=== PATIENT | female | born 1945 | race Caucasian/White ===

== ENCOUNTER 2025-01-15 17:11 | Emergency (ER) | payer MEDICARE, SELFPAY ==
[2025-01-15] VITALS (10 sets, daily range): BP systolic 89–113; BP diastolic 39–76; PULSE 96–99; RESP 14–19; TEMP 36.6–36.7; O2SAT 94–100; BMI 25.9
--- NOTE | 2025-01-15 17:14 | ECG_ITS ---
APPROVED REPORT Exam: Resting ECG HR:98 bpm ECG Measurements Heart Rate 98 AXES NJ 207 P 76 QRSd 100 QRS 79 QT 374 T 82 QTc 430 Conclusion ELECTRONIC VENTRICULAR PACEMAKER MARKED ST ELEVATION, CONSIDER INFERIOR INJURY [MARKED ST ELEVATION W/O Electronically signed by : AVEL HOLLINGSWORTH, 01/15/2025 23:12:33
--- NOTE | 2025-01-15 17:18 | ED_ITS ---
Discharge Plan Disposition Chief Complaint: Altered Mental Status Prescriptions Prescriptions: No Action Unobtainable Referrals Follow up/Referrals: Provider,Referral, MD [Referring] - See instructions Stand Alone Forms Stand Alone Forms: Transfer Record - ED Instructions Patient Instructions: DI for Altered Mental Status Print Language Print Language: Maltese Discharge ED Provider: Nils Govea Adult HPI General Chief complaint: Altered Mental Status Stated complaint: weakness Time Seen by Provider: 01/15/25 17:18 History of Present Illness HPI narrative: Patient presents for evaluation of shortness of breath. Patient states she does not know how long symptoms have been going on for her. Denies any pain. Denies any chest pain palpitations nausea vomiting. History severely limited secondary to patient's limited recollection of HPI, past medical history. Please note that above description of symptoms, in this electronic medical record under categorization of recalled from ER triage doctor by RN are reflective of an initial nursing assessment, however, is not reflective of my full history and physical exam that was personally taken and clarified. Consequentially, this preceding description of symptoms, which may include the patient's categorized chief complaint in the EMR, do not reflect my personal clinical impression, and the ultimate description of history of present illness and patient stated complaints should be deferred to this section of the note. Unless stated otherwise or congruent with this section of the note, additional signs, symptoms, or incongruence should be interpreted as inaccurate with my clinical impression. Related Data Home Medications ?Medication ?Instructions ?Recorded ?Confirmed Unobtainable 01/15/25 01/15/25 Allergies Allergy/AdvReac Type Severity Reaction Status Date / Time Unable to Assess Allergy Verified 01/15/25 18:34 [facility] Disclaimer: The information contained in this section may have been updated after the patient was seen, as this information can be updated by other users. Social History Smoking Status: Unknown if ever smoked alcohol intake: former current occupational status: other Travel in the last 8 weeks: None ROS Obtained: Yes other As per HPI Physical Exam General General appearance: alert Comment: Confused Head Head exam: atraumatic and normocephalic Eye Eye exam: Present normal appearance Neck Neck exam: Present normal inspection Chest Chest inspection: Present normal inspection and symmetric chest wall rise Respiratory Respiratory exam: Present normal lung sounds bilaterally (Decreased breath sounds at bilateral lung bases) Cardiovascular Cardiovascular exam: Present regular rate and normal rhythm Abdominal Exam Abdominal exam: Present soft Neurological Exam Neurological exam: Present alert and oriented X3 Psychiatric Psychiatric exam: Present normal affect and normal mood Skin Skin exam: Present warm and dry Medical Decision Making Medical Records Medical records reviewed: Yes I reviewed the patient's medical records. Screening: Per USPSTF and CDC recommendations, given the prevalence of disease in our region, it is our hospital?s policy to screen for HIV and viral Hepatitis for all patients aged 18 and over and those with ongoing risk factors. Zay Inquiry Pt receiving controlled substance: No Vital Signs: 01/15/25 17:20 01/15/25 17:30 01/15/25 18:00 Temperature 98.0 F Temperature Source Oral Pulse Rate 97 H 96 H Pulse Rate [Apical] 98 H Respiratory Rate 18 19 19 Blood Pressure 103/39 L 102/61 L Blood Pressure [Left Arm] 109/65 L Blood Pressure Mean Blood Pressure Mean [Left Arm] 79 Blood Pressure Source [Left Arm] Automatic Cuff Blood Pressure Position [Left Arm] Sitting 02 Sat by Pulse Oximetry 96 98 100 Oxygen Delivery Method Room Air Room Air Room Air 01/15/25 19:01 01/15/25 19:14 01/15/25 19:15 Temperature Temperature Source Pulse Rate 96 H Pulse Rate [Apical] Respiratory Rate 16 18 Blood Pressure 89/61 L 113/75 103/76 L Blood Pressure [Left Arm] Blood Pressure Mean 67 Blood Pressure Mean [Left Arm] Blood Pressure Source [Left Arm] Blood Pressure Position [Left Arm] 02 Sat by Pulse Oximetry 99 Oxygen Delivery Method 01/15/25 19:30 01/15/25 19:45 01/15/25 20:00 Temperature Temperature Source Pulse Rate 96 H 99 H 98 H Pulse Rate [Apical] Respiratory Rate 15 14 15 Blood Pressure 110/66 112/69 106/70 L Blood Pressure [Left Arm] Blood Pressure Mean Blood Pressure Mean [Left Arm] Blood Pressure Source [Left Arm] Blood Pressure Position [Left Arm] 02 Sat by Pulse Oximetry 98 99 100 Oxygen Delivery Method Lab Data Lab Results 01/15/25 17:16: WBC 8.6, RBC 4.14 L, Hgb 10.5 L, Hct 35.3 L, MCV 85.3, MCH 25.4 L, MCHC 29.7 L, RDW 18.8 H, Plt Count 246, MPV 13.5 H, Neut % (Auto) 87.9 H, L ymph % (Auto) 3.7 L, Cal[place]oun % (Auto) 7.7, Eos % (Auto) 0.0 L, Baso % (Auto) 0.1, Neut # (Auto) 7.5, Lymph # (Auto) 0.3 L, [place]oun # (Auto) 0.7, Eos # (Auto) 0.0, Baso # (Auto) 0.0, Total Counted 100, Neutrophils % (Manual) 87 H, Lymphocytes % (Manual) 3 L, Monocytes % (Manual) 10 H, Platelet Estimate Normal, Hypochromasia 1+, Acanthocytes (Spur) 2+, Sodium 135 L, Potassium 5.6 H, Chloride 105, Carbon Dioxide 13 L, Anion Gap 22.6 H, BUN 30 H, Creatinine 1.50 H, Estimated Creat Clear 37, Estimated GFR 33 L, Est GFR ( Amer) 40 L, Glucose 254 H, Calcium 8.4, Magnesium 1.7, Total Bilirubin 4.3 H, AST 613 H*, ALT 319 H*, A lkaline Phosphatase 188 H, Total Creatine Kinase 27 L, Troponin I < 0.01, N T-Pro-B Natriuret Pep 55657 H, Total Protein 5.7 L, Albumin 3.0 L, Globulin 2.7, Albumin/Globulin Ratio 1.1, Lipase 32 01/15/25 17:22: Urine Color Yellow, Urine Appearance Clear, Urine pH 5.5, Ur Specific [place] >= 1.030, Urine Protein Negative, Urine Glucose (UA) 3+, Urine Ketones 1+, Urine Blood Negative, Urine Nitrate Positive A, Urine Bilirubin 2+ A , Urine Urobilinogen 4.0, Ur Leukocyte Esterase Negative, Urine RBC 3-5, Urine WBC 3-5, Ur Squamous Epith Cells 5-10, Urine Bacteria 2+, Hyaline Casts 5-10 01/15/25 17:39: VBG pH 7.31, VBG pCO2 27.2 L, VBG pO2 42.8 H, VBG HCO3 13.5 L, V BG Total CO2 14.3 L, VBG O2 Saturation 67.5, VBG Base Excess -12.7 L, VBG Lactic Acid 3.4 H 01/15/25 17:51: PT 16.7 H, INR 1.56 H, APTT 26.4 L 01/15/25 17:53: SARS-CoV-2 (PCR) Not detected, Influenza A Untype (PCR) Not detected, Influenza Type B (PCR) Not detected 01/15/25 20:25: Troponin I < 0.01 01/15/25 17:16 01/15/25 17:16 Orders (Tests/Meds): ED MEDICATIONS Generic Name Dose Route Start Last Admin Trade Name Freq PRN Reason Stop Dose Admin Heparin Sodium/Dextrose 500 mls @ 28.74 mls/hr 01/15/25 20:30 01/15/25 20:34 Heparin 25,000 Units In D5w 500ml Premix IV 02/14/25 20:29 28.74 mls/hr .[id number] DEEPTHI Administration 18 UNITS/KG/HR Sodium Chloride 10 ml 01/15/25 18:27 01/15/25 18:29 Sodium Chloride 0.9% 10ml Syr (Rad Only) IV 02/14/25 18:26 10 ml NEEDED PRN Administration Maintain IV Site Discontinued Medications Generic Name Dose Route Start Last Admin Trade Name Freq PRN Reason Stop Dose Admin Heparin Sodium (Porcine) 5,000 unit 01/15/25 20:14 01/15/25 20:32 Heparin Sodium 5,000 Unit/Ml Vial IV 01/15/25 20:15 5,000 unit ONCE ONE Administration Iopamidol 70 ml 01/15/25 18:27 01/15/25 18:29 Iopamidol-370 (76%);100ml Bottle IV 01/15/25 18:28 70 ml ONCE ONE Administration Sodium Chloride 50 ml 01/15/25 18:27 01/15/25 18:29 0.9 % Sodium Chloride 50 Ml Vial IV 01/15/25 18:28 50 ml ONCE ONE Administration ORDERS Category Date Time Status CT abdomen pelvis w con Stat Cat Scan 01/15/25 18:05 Completed CTA Chest [CT angio chest PE protocol] Stat Cat Scan 01/15/25 17:43 Completed XR chest portable Stat Exams 01/15/25 17:42 Completed BNP [NT Pro Brain Natriuretic Pep.] Stat Lab 01/15/25 17:16 Completed CBC w/Auto Diff [Complete Blood Count Auto Diff] Stat Lab 01/15/25 17:16 Completed CK [Creatine Kinase] Stat Lab 01/15/25 17:16 Completed CMP [Comprehensive Metabolic Panel] Stat Lab 01/15/25 17:16 Completed Heparin drip PTT [PTT Heparin (inpatient only)] Stat Lab 01/15/25 17:51 Completed Lipase Stat Lab 01/15/25 17:16 Completed MAG [Magnesium] Stat Lab 01/15/25 17:16 Completed PT INR [Prothrombin Time INR] Stat Lab 01/15/25 17:51 Completed PTT Heparin (inpatient only) Stat Lab 01/15/25 21:35 Ordered Rapid PCR Covid and Flu A/B Stat Lab 01/15/25 17:53 Completed Troponin I Q3H Lab 01/15/25 17:16 Completed Troponin I Q3H Lab 01/15/25 20:25 Completed Urinalysis and Microscopic Stat Lab 01/15/25 17:22 Completed Blood Culture Stat Micro 01/15/25 19:01 Received Urine Culture Stat Micro 01/15/25 17:22 Received VBG [Venous Blood Gas] Stat RT 01/15/25 17:39 Completed Medical Decision Narrative: Patient with history and exam per above presenting for evaluation of multiple complaints, including shortness of breath, altered mental status Diagnoses considered include pneumonia, ACS, pulmonary embolism, bacteremia, among others ED workup and treatment included: ED MEDICATIONS Generic Name Dose Route Start Last Admin Trade Name Freq PRN Reason Stop Dose Admin Heparin Sodium/Dextrose 500 mls @ 28.74 mls/hr 01/15/25 20:30 01/15/25 20:34 Heparin 25,000 Units In D5w 500ml Premix IV 02/14/25 20:29 28.74 mls/hr .[id number] DEEPTHI Administration 18 UNITS/KG/HR Sodium Chloride 10 ml 01/15/25 18:27 01/15/25 18:29 Sodium Chloride 0.9% 10ml Syr (Rad Only) IV 02/14/25 18:26 10 ml NEEDED PRN Administration Maintain IV Site Discontinued Medications Generic Name Dose Route Start Last Admin Trade Name Freq PRN Reason Stop Dose Admin Heparin Sodium (Porcine) 5,000 unit 01/15/25 20:14 01/15/25 20:32 Heparin Sodium 5,000 Unit/Ml Vial IV 01/15/25 20:15 5,000 unit ONCE ONE Administration Iopamidol 70 ml 01/15/25 18:27 01/15/25 18:29 Iopamidol-370 (76%);100ml Bottle IV 01/15/25 18:28 70 ml ONCE ONE Administration Sodium Chloride 50 ml 01/15/25 18:27 01/15/25 18:29 0.9 % Sodium Chloride 50 Ml Vial IV 01/15/25 18:28 50 ml ONCE ONE Administration ORDERS Category Date Time Status CT abdomen pelvis w con Stat Cat Scan 01/15/25 18:05 Completed CTA Chest [CT angio chest PE protocol] Stat Cat Scan 01/15/25 17:43 Completed XR chest portable Stat Exams 01/15/25 17:42 Completed BNP [NT Pro Brain Natriuretic Pep.] Stat Lab 01/15/25 17:16 Completed CBC w/Auto Diff [Complete Blood Count Auto Diff] Stat Lab 01/15/25 17:16 Completed CK [Creatine Kinase] Stat Lab 01/15/25 17:16 Completed CMP [Comprehensive Metabolic Panel] Stat Lab 01/15/25 17:16 Completed Heparin drip PTT [PTT Heparin (inpatient only)] Stat Lab 01/15/25 17:51 Completed Lipase Stat Lab 01/15/25 17:16 Completed MAG [Magnesium] Stat Lab 01/15/25 17:16 Completed PT INR [Prothrombin Time INR] Stat Lab 01/15/25 17:51 Completed PTT Heparin (inpatient only) Stat Lab 01/15/25 21:35 Ordered Rapid PCR Covid and Flu A/B Stat Lab 01/15/25 17:53 Completed Troponin I Q3H Lab 01/15/25 17:16 Completed Troponin I Q3H Lab 01/15/25 20:25 Completed Urinalysis and Microscopic Stat Lab 01/15/25 17:22 Completed Blood Culture Stat Micro 01/15/25 19:01 Received Urine Culture Stat Micro 01/15/25 17:22 Received VBG [Venous Blood Gas] Stat RT 01/15/25 17:39 Completed Labs were independently interpreted by me, significant for markedly elevated BNP, elevated creatinine, lactic acid 3.4, liver enzymes markedly elevated, AST 613, ALT 319, total bilirubin 4.3, CK within normal limits Imaging was independently visualized and interpreted by me, significant for subsegmental pulmonary emboli with no evidence of acute right heart strain Please refer to radiology report for full details. Patient will benefit from further management at facility with higher level of care given recent discharge and multiple comorbidities. She is excepted for admission at outside facility. Critical Care Critical Care Time Critical Care Time: No
--- NOTE | 2025-01-15 17:18 | PC.NURSE ---
FS 238
--- NOTE | 2025-01-15 17:27 | PC.NURSE ---
PT PLACED ON [employer]. CALL LIGHT WITHIN REACH. NO NEEDS AT THIS TIME
[2025-01-15 17:41] LABS: Lactate Venous 3.4 mmol/L (0.4-2.0); VBG Base Excess -12.7 mmol/L (-2.4-2.3); VBG HCO3 13.5 mmol/L (23-30); VBG Oxygen Saturation 67.5 % (50-70); VBG PCO2 27.2 mmol/L (35-51); VBG PH 7.31 mmol/L (7.31-7.41); VBG PO2 42.8 mmol/L (28-40); VBG Total CO2 14.3 mmol/L (23-27)
--- NOTE | 2025-01-15 17:42 | XR_ITS ---
PROCEDURE INFORMATION: Exam: XR Chest Exam date and time: 01/15/2025 6:52 PM Age: 79 years old Clinical indication: Pain; Shortness of breath; Left-sided; Additional info: SOA, pleural effusions on pocus TECHNIQUE: Imaging protocol: Radiologic exam of the chest. Views: 1 view. COMPARISON: CT ANGIO CHEST PE PROTOCOL 01/15/2025 6:26 PM FINDINGS: Tubes, catheters and devices: Triple chamber pacemaker in place. Lungs: Small linear lucency in the periphery of the right lung apex. Normal variant azygos fissure. Bilateral perihilar congestive changes. Patchy consolidations in the left lung base. Pleural spaces: Small bilateral pleural effusions, slightly larger on the left. Heart/Mediastinum: Mild cardiomegaly. Bones/joints: Unremarkable. Organs: Cholecystectomy clips. IMPRESSION: 1. Small linear lucency in the periphery of the right lung apex. Questionable for a tiny pneumothorax or artifact. Follow-up is recommended. 2. Small bilateral pleural effusions, slightly larger on the left. 3. Bilateral perihilar congestive changes. 4. Patchy consolidations in the left lung base. Consider atelectasis or developing airspace disease.
--- NOTE | 2025-01-15 17:43 | CT_ITS ---
PROCEDURE INFORMATION: Exam: CTA Chest With Contrast Exam date and time: 01/15/2025 6:26 PM Age: 79 years old Clinical indication: Shortness of breath; Additional info: namrata NGUYEN TECHNIQUE: Imaging protocol: Computed tomographic angiography of the chest with contrast. Exam focused on the arteries. 3D rendering (Not supervised by radiologist): MIP and/or 3D reconstructed images were created by the technologist. Radiation optimization: All CT scans at this facility use at least one of these dose optimization techniques: automated exposure control; mA and/or kV adjustment per patient size (includes targeted exams where dose is matched to clinical indication); or iterative reconstruction. Contrast material: ISO 370; Contrast volume: 70 ml; Contrast route: INTRAVENOUS (IV); COMPARISON: CT ANGIO CHEST PE PROTOCOL 01/15/2025 6:26 PM FINDINGS: Tubes, catheters and devices: Triple chamber pacemaker in place. Pulmonary arteries: Subsegmental pulmonary arterial branches are slightly difficult to evaluate due to motion. Despite this, there are apparent bilateral lower lobe pulmonary arterial segmental and subsegmental filling defects (worse on the left). Consistent for pulmonary emboli on the left and highly suspicious for small emboli on the right , both with superimposed motion artifact. Aorta: Moderate aortic atherosclerosis. No aneurysm. Trachea: Airways remain patent. Lungs: Compressive atelectasis in the bilateral lungs. Slight mosaic attenuation with some mild interlobular septal thickening. Benign lung calcified granulomas. No large airspace consolidations. Normal variant azygos fissure. Pleural spaces: Large and symmetric bilateral layering pleural effusions are present. No pneumothorax. Heart: Abfi-ar-hzfvacom cardiomegaly. Heart RV/LV ratio: 0.67. Coronary arteries: Severe trivessel coronary artery disease. Lymph nodes: Unremarkable. No enlarged lymph nodes. Bones/joints: Moderate degenerative changes of the thoracic spine. No acute fracture. Soft tissues: Unremarkable. IMPRESSION: 1. Subsegmental pulmonary arterial branches are slightly difficult to evaluate due to motion. Despite this, there are bilateral lower lobe pulmonary arterial segmental and subsegmental filling defects (worse on the left). Consistent for pulmonary emboli on the left and highly suspicious for small emboli on the right, both with superimposed motion artifact. 2. Large and symmetric bilateral layering pleural effusions are present. 3. Slight mosaic attenuation with some mild interlobular septal thickening. Favoring a combination of chronic small airways disease and perhaps early interstitial pulmonary edema. 4. No evidence of right heart strain with an RV/LV ratio of less than 1. COMMENTS: 1. Please review abdomen and pelvic CT performed on the same date for other findings. 2. THIS REPORT CONTAINS FINDINGS THAT MAY BE CRITICAL TO PATIENT CARE. The findings were verbally communicated via telephone conference with Nils Govea at 8:03 PM EDT on 01/15/2025. The findings were acknowledged and understood.
--- NOTE | 2025-01-15 17:49 | PC.NURSE ---
called to see if pt had been there and the lady from health information stated she had been there in november to december 20 so she is faxing([phone]) over any medical history and medications for pt
[2025-01-15 17:50] LABS: Microscopic, Urine URINE MICROSCOPIC (MICROSCOPIC)
[2025-01-15 17:52] LABS: Basophils % 0.1 % (0.1-2.0); Hematocrit 35.3 % (37.0-47.0); Hemoglobin 10.5 g/dL (12.2-16.2); Lymphocytes # 0.3 K/mm3 (0.7-4.5); Lymphocytes % 3.7 % (10-50); Mean Corpuscular HGB Conc 29.7 g/dL (31.8-35.4); Mean Corpuscular Hemoglobin 25.4 pg (27.0-31.2); Mean Corpuscular Volume 85.3 fl (81-99); Mean Platelet Volume 13.5 fl (7.4-10.4); Monocytes # 0.7 K/mm3 (0.1-1.0); Monocytes % 7.7 % (1.7-9.3); Neutrophils # 7.5 K/mm3 (1.8-7.8); Neutrophils % 87.9 % (37.0-80.0); Nucleated Red Blood Cells # 0.06 10^3/uL; Nucleated Red Blood Cells % 0.7 %; Platelet Count 246 K/mm3 (142-424); Red Blood Count 4.14 M/mm3 (4.20-5.40); Red Cell Distribution Width 18.8 % (11.5-17.5); Red Cell Distribution Width-SD 57.9 fL; White Blood Count 8.6 K/mm3 (4.8-10.8)
[2025-01-15 17:54] LABS: Chloride 105 mmol/L (98-107); MANUAL DIFFERENTIAL MANUAL DIFFERENTIAL (MANUAL DIFF)
[2025-01-15 17:54] LABS: Appearance,Urine CLEAR (Clear); Blood, Urine Negative (Negative); Color,Urine YELLOW (Yellow); Glucose,Urine (UA) 3+ (Negative); Ketones,Urine 1+ (Negative); Leukocyte Esterase,Urine Negative (Negative); Nitrate,Urine POSITIVE (Negative); PH,Urine 5.5 (5.0-8.5); Protein,Urine Negative (Negative); Specific Gravity, Urine >= 1.030 (1.005-1.030)
[2025-01-15 17:55] LABS: Potassium 5.6 mmoL/L (3.5-5.1); Sodium 135 mmol/L (136-145)
[2025-01-15 17:56] LABS: Coronavirus 19, PCR Not Detected (NotDetected); Influenza A, PCR Not Detected (NotDetected); Influenza B, PCR Not Detected (NotDetected)
[2025-01-15 17:57] LABS: Blood Urea Nitrogen 30 mg/dl (7-17); Creatinine Clearance Estimated 37 mL/min (50-200); Estimated Glomerular Filt Rate 33 ml/min (>60); GFR (African American) 40 ML/MIN (>60)
[2025-01-15 17:58] LABS: Alanine Aminotransferase 319 U/L (12-78); Albumin/Globulin Ratio 1.1 (1.1-1.8); Alkaline Phosphatase 188 U/L (38-126); Aspartate Amino Transferase 613 U/L (14-36); Bilirubin,Total 4.3 mg/dl (0.2-1.3); Calcium 8.4 mg/dl (8.4-10.2); Globulin 2.7 g/dL (1.3-3.2); Glucose 254 mg/dl (74-100); Magnesium 1.7 mg/dl (1.6-2.3); Total Protein,Serum 5.7 g/dl (6.3-8.2)
[2025-01-15 17:59] LABS: Bilirubin,Urine 2+ (Negative)
--- NOTE | 2025-01-15 18:04 | PC.NURSE ---
FAMILY AT BEDSIDE UNABLE TO PROVIDE MEDICAL HISTORY OR MEDICATION LIST. PT RECEIVES ALL CARE AT [facility]. FAMILY STATES THEY REQUESTED TO GO TO [facility] AND EMS WOULD NOT TAKE PT THERE
[2025-01-15 18:05] LABS: INR 1.56 (0.9-1.1); Prothrombin Time 16.7 seconds (10.1-12.5)
--- NOTE | 2025-01-15 18:05 | CT_ITS ---
PROCEDURE INFORMATION: Exam: CT Abdomen And Pelvis With Contrast Exam date and time: 01/15/2025 6:26 PM Age: 79 years old Clinical indication: Other: AMS, elevated liver enzymes TECHNIQUE: Imaging protocol: Computed tomography of the abdomen and pelvis with contrast. 3D rendering (Not supervised by radiologist): MIP and/or 3D reconstructed images were created by the technologist. Radiation optimization: All CT scans at this facility use at least one of these dose optimization techniques: automated exposure control; mA and/or kV adjustment per patient size (includes targeted exams where dose is matched to clinical indication); or iterative reconstruction. Contrast material: ISOVUE; Contrast volume: 70 ml; Contrast route: IV; COMPARISON: CT ANGIO CHEST PE PROTOCOL 01/15/2025 6:26 PM FINDINGS: Liver: Slight 17 cm hepatomegaly with a mottled attenuation/enhancement of the liver parenchyma. Smooth liver contour. Gallbladder and biliary ducts: Cholecystectomy. Slight biliary ductal dilation is most probably physiologic. I do not see any radiopaque CBD stones. Pancreas: Chronic fatty atrophy of the pancreas without ductal dilation or cysts/masses. Spleen: Normal. No splenomegaly. Adrenal glands: Normal. No mass. Kidneys and ureters: 3.7 cm benign cyst in the right kidney lower pole for which no follow-up is recommended. No solid renal masses, hydronephrosis, renal stones, or hydroureter. Stomach and bowel: Severe constipation with a moderate amount of fecal material in the rectum, favoring mild fecal impaction. No bowel obstruction or inflammatory changes. Appendix: Appendix is not seen. Intraperitoneal space: Unremarkable. No free air. No significant fluid collection. 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 Vvbu-so-rlygthvj stenosis at the takeoff of the left renal artery. Severe aortic, bi iliac, and aortic branch vessel calcific atherosclerotic disease. Portal venous system appears patent. Lymph nodes: Unremarkable. No enlarged lymph nodes. Urinary bladder: Unremarkable as visualized. Reproductive: Hysterectomy. No adnexal cysts or masses. Bones/joints: Mild presacral edema. Bone demineralization. Moderate degenerative changes thoracolumbar and lumbosacral spine. No acute fracture. Soft tissues: Moderate body wall edema. IMPRESSION: 1. Slight 17 cm hepatomegaly with a mottled attenuation/enhancement of the liver parenchyma. Suspicious for artifact or related to hepatic congestion/steatosis. Consider nonemergent ultrasound correlation. 2. Severe constipation with a moderate amount of fecal material in the rectum, favoring mild fecal impaction. 3. Mild volume overload. COMMENTS: 1. Please review chest CT performed concomitantly. 2. Consistent with the [employer]'s Incidental Findings Committee white paper (J Am Arslan Radiol 2018): Any incidental renal lesion less than 1 cm or classified as too small to characterize, or any incidental cystic renal lesion characterized as simple-appearing, is likely benign. No follow-up imaging is recommended for these lesions per consensus recommendations based on imaging criteria.
[2025-01-15 18:07] LABS: NT Pro Brain Natriuretic Pep. 22800 pg/mL (0-450)
[2025-01-15 18:08] LABS: Lipase 32 U/L (23-300)
--- NOTE | 2025-01-15 18:13 | PC.NURSE ---
call [facility] back to see if i could speak to household refrigeration mechanic to obtain any kind of info on pt due to family not knowing anything and pt unable to tell us anything, [facility] said sack department supervisor has info given to them by medical records and she just needed a birthday so i gave that information to traffic control operator at [facility] and im now waiting for fax regarding any medical records and medications on pt
[2025-01-15 18:18] LABS: Bacteria,Urine 2+ /lpf
[2025-01-15 18:21] LABS: Hypochromasia 1+; Lymphocytes % 3 % (10-50); Monocytes % 10 % (2-9); Neutrophils % 87 % (42-76); Platelet Estimate Normal; Total Cells Counted 100
[2025-01-15 18:23] LABS: Acanthocytes 2+
[2025-01-15 18:24] LABS: Troponin I < 0.01 ng/ml (0.00-0.034)
[2025-01-15 18:27] LABS: Creatine Kinase 27 U/L (30-135)
[2025-01-15] MEDS: 0.9 % SODIUM CHLORIDE 50 ML VIAL IV (18:29)
[2025-01-15] MEDS: IOPAMIDOL-370 (76%);100ML BOTTLE 70 ML IV (18:29)
[2025-01-15] MEDS: SODIUM CHLORIDE 0.9% 10ML SYR (RAD ONLY) 10 ML IV (18:29)
[2025-01-15 18:38] LABS: Anion Gap 22.6 mEq/L (5-15); Carbon Dioxide 13 mmol/L (22.0-30.0)
--- NOTE | 2025-01-15 18:40 | PC.NURSE ---
PT TO CT
--- NOTE | 2025-01-15 18:44 | PC.NURSE ---
received fax from [facility]
--- NOTE | 2025-01-15 20:21 | PC.NURSE ---
Had Radiology Power Share to [facility].
--- NOTE | 2025-01-15 20:21 | PC.NURSE ---
lab contacted regarding the new order placed for PTT, specimen going to be added onto tube that is in the lab
--- NOTE | 2025-01-15 20:27 | PC.NURSE ---
Spoke with [facility] about transferring, awaiting a call back at this time
--- NOTE | 2025-01-15 20:28 | PC.NURSE ---
2nd trop drawn at this time per Alfredo Medic.
[2025-01-15] MEDS: HEPARIN SODIUM 5,000 UNIT/ML VIAL 5000 UNIT IV (20:32)
[2025-01-15 20:34] LABS: PTT Heparin (inpatient only) 26.4 Seconds (50-75)
[2025-01-15] MEDS: HEPARIN SODIUM,PORCINE/D5W 500 ML 28.74 UNIT IV (20:34)
[2025-01-15 21:00] LABS: Troponin I < 0.01 ng/ml (0.00-0.034)
--- NOTE | 2025-01-15 21:04 | PC.NURSE ---
Called for EMS for Transport to [facility].
--- NOTE | 2025-01-15 21:15 | PC.NURSE ---
Report given to Poly BROWN at [facility]. kera contacted at this time regarding adjustment
[2025-01-15 21:42] LABS: Reflex Lactic Add Lactic Reflex
== END 2025-01-15 21:31 | disposition short-term general hospital (02) ==
PROVIDERS: Emergency Provider Emergency Medicine; PCP Family Medicine
DX: I26.99 Other pulmonary embolism without acute cor pulmonale (principal); R41.82 Altered mental status, unspecified; E87.29 Other acidosis; R74.02 Elevation of levels of lactic acid dehydrogenase [LDH]; R06.02 Shortness of breath; R53.1 Weakness
CPT/HCPCS: 71045; 71275; 74177; 80053; 81001; 82550; 82803; 83690; 83735; 83880; 84484; 85007; 85025; 85027; 85610; 85730; 87040; 87086; 87636; 93005; 96365; 96376; 99285; J1644; Q9967